=== PATIENT | male | born 1995 | race Caucasian/White ===

== ENCOUNTER 2017-10-12 21:32 | Emergency (ER) | payer BC ==
[~2017-10-12] VITALS: Ht 182.9 cm; Wt 95.3 kg
[2017-10-12 21:36] VITALS: TEMP 37.6; Ht 182.9 cm; Wt 95.3 kg
[2017-10-12] MEDS ORDERED: KETOROLAC TROMETHAMINE 30 MG/ML VIAL IV STA (21:53)
[2017-10-12] MEDS ORDERED: SODIUM CHLORIDE 0.9% 1000ML 1,000 ML IV ONE (22:00)
[2017-10-12 22:43] LABS: ALBUMIN 3.7 gm/dl (3.4-5.0); CALCIUM 9.2 mg/dl (8.5-10.1); CREATININE 1.03 mg/dl (0.60-1.40); POTASSIUM 3.5 mmol/L (3.5-5.1)
[2017-10-12 22:43] LABS: INFLUENZA B ANTIGEN Neg for Influ B (NEG)
[2017-10-12 22:46] LABS: TOTAL PROTEIN 8.5 gm/dl (6.4-8.2)
--- NOTE | 2017-10-12 22:48 | DIAGNOSTIC IMAGING REPORT ---
ABDOMEN 2VIEW W/PA CHEST RTN HISTORY: 22 years-old Male cough, fever, hx UC, abd p ain acute cough and fever COMPARISON: None available TECHNIQUE: PA view of the chest with erect and supine views of the abdomen FINDINGS: Cardiomediastinal and hilar silhouettes are within normal limits. There is no pneumothorax, pleural effusion, focal airspace consolidation or overt pulmonary edema. The bones of the chest appear grossly intact. No pneumoperitoneum on the upright projection. Several air-fluid levels are noted within mildly dilated small bowel the left upper abdomen. There is also suggestion of wall thickening within these loops of small bowel. No pneumatosis. Moderate volume of formed stool is noted within the descending and sigmoid colon. No urolith. No fracture. IMPRESSION: 1. Mildly dilated loops of small bowel within the left upper abdomen demonstrate air-fluid levels with apparent wall thickening suggesting focal ileus/enteritis with developing low-grade small bowel obstruction also within the differential. 2. No pneumatosis or pneumoperitoneum. 3. No acute process of the chest. The above report was generated using voice recognition software. It may contain grammatical, syntax or spelling errors. Electronically signed by: Bryson Hugo M.D. 10/12/2017 10:47 PM Dictated Date/Time: 10/12/2017 10:42 PM
[2017-10-12] MEDS ORDERED: MESA1.2T PO (23:06)
[2017-10-12] MEDS ORDERED: BUDE1TAB PO (23:07)
[2017-10-12 23:45] LABS: HEMATOCRIT 42.5 % (42-52); MEAN CELL VOLUME 79.7 fL (80-100); MEAN CORPUSCULAR HGB CONC 37.6 g/dl (32-36); MEAN PLATELET VOLUME 10.2 fL (7.4-10.4); PLATELET COUNT 158 K/uL (130-400); RED CELL DISTRIBUTION WIDTH CV 12.2 % (11.5-14.5); RED CELL DISTRIBUTION WIDTH SD 35.3 fL (36.4-46.3); WHITE BLOOD COUNT 11.23 K/uL (4.8-10.8)
[2017-10-12 23:48] LABS: BASO % 0.1 %; BASO ABS # 0.01 K/uL (0-0.2); EOS % 0.7 %; EOS ABS # 0.08 K/uL (0-0.5); IG# 0.04 K/uL (0.00-0.02); LYMPH ABS # 1.69 K/uL (1.2-3.4); MONO % 11.7 %; MONO ABS # 1.31 K/uL (0.11-0.59); NEUT % 72.1 %
[2017-10-13] MEDS ORDERED: OPTIRAY 320 IV PRN
[2017-10-13 01:11] VITALS: BP 131/69; PULSE 77; O2SAT 97
--- NOTE | 2017-10-13 06:49 | DIAGNOSTIC IMAGING REPORT ---
CT ABD WITH IV CONTRAST ONLY (CT) CT DOSE: 365.10 mGy.cm CLINICAL HISTORY: Abdominal pain and flulike symptoms. Trauma history to [place] TECHNIQUE: The patient was scanned in a dynamic helical fashion during intravenous administration of 93 cc of Optiray 320. A dose lowering technique was utilized adhering to the principles of ALARA. COMPARISON STUDY: None. FINDINGS: The visualized portions of the lung bases are unremarkable. No hepatic masses are visualized. The gallbladder appears normal. No splenic is borderline enlarged measuring 13 cm. There is a small splenule. No pancreatic masses are visualized. No adrenal gland masses are visualized. No renal masses are visualized. There is no hydronephrosis. There is no evidence of aortic aneurysm. No free intraperitoneal air is visualized. There is no pathologic bowel dilatation within the visualized upper abdomen. IMPRESSION: Borderline splenomegaly. Otherwise unremarkable CT scan of the upper abdomen. Electronically signed by: Ernie Rueda M.D. 10/13/2017 6:47 AM Dictated Date/Time: 10/13/2017 6:44 AM
--- NOTE | 2017-10-13 17:28 | EMERGENCY ROOM VISIT NOTE ---
ED Visit Note First contact with patient: 21:43 Chief Complaint: Flulike symptoms. History of Present Illness: Mr. Wolff is a 22-year-old white male who ambulates into the ED complaining of sore throat, productive cough, body aches, fatigue and resolved abdominal pain. Historically patient reports she has a history of ulcerative colitis of the rectum. Patient reports he just returned from [place] on spring. He reports 7 days ago when he got to [place] he was feeling tired and fatigued and developed a mildly productive cough of clear sputum. On day 3 of his illness he reports he started having body aches and fevers and a sore throat and on day 4 of his illness he reports he started developing abdominal pain with nausea but no vomiting. He reports his abdominal pain and nausea resolved on day 6 of his symptoms. Currently patient's chief complaint is a sore throat. He describes this as a combination of pressure and throbbing sensation. It is located in the bilateral posterior pharyngeal area. He rates this discomfort 7/10. His pain is nonradiating. His pain worsens with swallowing. He has not identified any alleviating factors related to the pain. He reports while in [place] he was seen by medical practitioner and placed on Zithromax and a cold and flu medication. Associated with this sore throat he still has a mildly productive cough and is feeling fatigued. Patient reports over the last 2 days he has not been having any fevers, chills, sweats, skin eruptions, skin color changes, headaches, dizziness, lightheadedness, hearing changes, ear drainage, voice changes, painful talking, drooling, inability to swallow, neck pain/stiffness, hemoptysis, wheezing, shortness of breath, dyspnea on exertion, chest pain, palpitations, previous clots, claudication, cramping, abdominal pain, nausea, vomiting, diarrhea, bloody stools, black/tarry stools, urinary symptoms, hematuria, decreased appetite, back/flank pain. Review of Systems: As noted above in history of present illness. All body systems were reviewed and found to be negative as noted above. Past Medical History: Ulcerative colitis, unspecified heart murmur. Current Medications: Lialda, Uceris. Allergies to Medications: Patient denies. Social History: Patient is currently a university student; he feels safe in his home environment; he denies tobacco use and admits to alcohol use. Physical Examination: Vital Signs: Date Time Temp Pulse Resp B/P (MAP) Pulse Ox O2 Delivery O2 Flow Rate FiO2 10/13/17 01:11 77 18 131/69 97 10/12/17 23:32 90 18 121/70 99 Room Air 10/12/17 21:36 37.6 97 20 116/66 99 Room Air GENERAL: 22-year-old male in mild distress due to symptoms, nontoxic-appearing, febrile and hemodynamically stable. NEUROLOGICAL: Awake, alert and oriented to person, place and time. Answering questions appropriately and following commands. Normal gait. Good hand eye coordination. SKIN: Warm, dry and pink. No soft tissue eruptions or trauma noted. HEENT: Atraumatic and normocephalic. No tenderness or erythema over the frontal or maxillary sinuses. External ears are nontender. Canals are pink and patent. Tympanic membranes are not erythematous or edematous. PERRLA. Sclera white and conjunctiva pink. No drainage from naris without audible congestion. Oral cavity moist and pink. Uvula is midline. Pharynx is mildly erythematous and mildly edematous. Mild tonsillar hypertrophy with a clear exudative material on the tonsils. Speech normal and clear. Mild anterior cervical chain lymphadenopathy. Trachea midline. No jugular venous distention. No laryngeal tenderness. BACK: No tenderness over the bony spine. No nuchal rigidity or meningismus. Full range of motion of the cervical spine. No CVA tenderness. THORAX: Lungs sounds are clear to auscultation with mild decreased air movement in the left base. Equal bilaterally with symmetrical chest wall. No wheezing, rales or rhonchi. No crepitus, tenderness, subcutaneous air or deformities noted. HEART: Regular rate and rhythm. No gallops, rubs or murmurs are appreciated. ABDOMEN: Flat and soft with mild diffuse tenderness throughout the abdomen. Positive bowel sounds in all quadrants. No guarding, rigidity or organomegaly. EXTREMITIES: Moves all extremities well on command and with purpose. All distal neurovascular statuses are intact and equal bilaterally. No calf tenderness or cords. ED Course: Patient is assessed as noted above. Patient's medication list was reviewed. Laboratory Testing: Test 10/12/17 22:11 10/12/17 22:17 Range/Units White Blood Count 11.23 4.8-10.8 K/uL Red Blood Count 5.33 4.7-6.1 M/uL Hemoglobin 16.0 14.0-18.0 g/dL Hematocrit 42.5 42-52 % Mean Corpuscular Volume 79.7 80-100 fL Mean Corpuscular Hemoglobin 30.0 25-34 pg Mean Corpuscular Hemoglobin Concent 37.6 32-36 g/dl Platelet Count 158 130-400 K/uL Mean Platelet Volume 10.2 7.4-10.4 fL Neutrophils (%) (Auto) 72.1 % Lymphocytes (%) (Auto) 15.0 % Monocytes (%) (Auto) 11.7 % Eosinophils (%) (Auto) 0.7 % Basophils (%) (Auto) 0.1 % Neutrophils # (Auto) 8.10 1.4-6.5 K/uL Lymphocytes # (Auto) 1.69 1.2-3.4 K/uL Monocytes # (Auto) 1.31 0.11-0.59 K/uL Eosinophils # (Auto) 0.08 0-0.5 K/uL Basophils # (Auto) 0.01 0-0.2 K/uL RDW Standard Deviation 35.3 36.4-46.3 fL RDW Coefficient of Variation 12.2 11.5-14.5 % Immature Granulocyte % (Auto) 0.4 % Immature Granulocyte # (Auto) 0.04 0.00-0.02 K/uL Red Blood Cell Morphology Unremarkable Erythrocyte Sedimentation Rate 41 0-14 mm/hr Sodium Level 130 136-145 mmol/L Potassium Level 3.5 3.5-5.1 mmol/L Chloride Level 95 98-107 mmol/L Carbon Dioxide Level 30 21-32 mmol/L Anion Gap 6.0 3-11 mmol/L Blood Urea Nitrogen 16 7-18 mg/dl Creatinine 1.03 0.60-1.40 mg/dl Est Creatinine Clear Calc Drug Dose 137.0 ml/min Estimated GFR () 120.6 Estimated GFR (Non- 104.1 BUN/Creatinine Ratio 15.4 10-20 Random Glucose 85 70-99 mg/dl Calcium Level 9.2 8.5-10.1 mg/dl Total Bilirubin 1.2 0.2-1 mg/dl Direct Bilirubin 0.2 0-0.2 mg/dl Aspartate Amino Transf (AST/SGOT) 32 15-37 U/L Alanine Aminotransferase (ALT/SGPT) 55 12-78 U/L Alkaline Phosphatase 102 45-117 U/L C-Reactive Protein 15.70 0-0.29 mg/dl Total Protein 8.5 6.4-8.2 gm/dl Albumin 3.7 3.4-5.0 gm/dl Lipase 64 73-393 U/L Monoscreen NEG NEG Influenza Type A Antigen Neg for Influ A NEG Influenza Type B Antigen Neg for Influ B NEG Group A Streptococcus Screen: Negative. Cultures pending. Acute Abdominal Series: Was read by myself and the radiologist showing no acute infiltrates, effusions or pneumothorax. Normal heart silhouette and bony anatomy. Abdominal component shows mildly dilated loops of small bowel within the left upper quadrant demonstrating air-fluid levels and apparent wall thickening suggestive of focal ileus or enteritis with developing low-grade small bowel obstruction. No pneumatosis or pneumoperitoneum. IV Contrast Abdominal/Pelvic CT: Was reviewed by myself and read by the radiologist showing mild hepatic steatosis, small splenule, mild unspecific splenomegaly without focal lesion, pancreatic atrophy without inflammatory changes or masses, mild prominence of fluid and gas filled small bowel loops that are nonspecific, no bowel obstruction or inflammation identified. Patient was hydrated with IV fluids and received 30 mg of Toradol IV for pain. Patient was reassessed multiple times during her stay in the emergency department. Patient's case was reviewed with Dr. Del Valle; we agreed on diagnostic approach, treatment, disposition and plan. Patient was educated about today's findings and instructed on his treatment plan ; he verbalized understanding and agreement with this plan. Clinical Impression: Acute pharyngitis. Enteritis. Decision-Making: Initially my differential diagnosis for his sore throat I considered mononucleosis, streptococcal pharyngitis, viral pharyngitis, and for his abdominal pain/tenderness I considered bowel obstruction, Crohn's exacerbation, splenomegaly and other causes. Disposition: Patient discharged home in stable condition accompanied by 2 male friend; prior to departure he was reassessed and subjectively reported he was pain and symptom-free. NOTE: Prior to being discharged patient did not report that he is currently being treated by his personal interlocking and signal mechanic for a Crohn's flare. Plan: Patient was encouraged to continue his current medications as prescribed. Patient was encouraged alternate ibuprofen and acetaminophen every 3 hours as needed for pain. Patient was encouraged to gargle with salt water for 5 times a day for the next 4-5 days. Patient was encouraged to stay well-hydrated with increased clear fluids. Patient was encouraged to use a liquid or mechanical soft diet until resolution of throat discomfort. Patient was encouraged to contact his interlocking and signal mechanic and request follow-up care and treatment. Patient was encouraged to follow-up With [facility] for his pharyngitis if no better in 3-4 days. Patient was encouraged to return to the ED for worsening/uncontrolled pain, painful talking, drooling, inability to swallow, uncontrolled fevers, worsening abdominal pain, nausea/vomiting, bloody stools, bloody vomitus or any new/ concerning symptoms.
--- NOTE | 2017-10-15 16:41 | Pharmacy Progress Note ---
ED Pharmacist Culture FollowUp Date of Service: Oct 15, 2017. Patient with RARE group A beta strep in backup culture. Patient was seen for sore throat, fatigue, body aches. Patient began to feel poorly on vacation in [place], per notes patient was prescribed zithromax in [place] which should cover strep infection. F/u phone call to determine if symptoms getting better, when he was prescribed the azithromycin in regards to symptoms/if he completed course. Left message ~[phone].
== END 2017-10-13 01:12 | disposition home or self-care (01) ==
LOC: C.EDB 21:34 → C.EDC 10-13 01:12
DX: J02.9 Acute pharyngitis, unspecified (principal); K52.9 Noninfective gastroenteritis and colitis, unspecified; K51.90 Ulcerative colitis, unspecified, without complications